=== PATIENT | male | born 1980 | race Native Hawaiian/Other Pacific Islander ===

== ENCOUNTER 2017-11-03 20:05 | Emergency (ER) | payer OTHER ==
[2017-11-03 20:54] VITALS: BP 115/64; PULSE 74; RESP 15; TEMP 98.2; O2SAT 99
[2017-11-03] MEDS ORDERED: NAPROXEN 500 MG TAB PO ONE (22:15)
[2017-11-03] MEDS ORDERED: CYCLOBENZAPRINE HCL 10 MG TAB PO ONE (22:15)
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
[2017-11-03] MEDS ORDERED: DICL75TA PO (22:33)
[2017-11-03] MEDS ORDERED: CYCL10TA PO (22:33)
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
[2017-11-03 23:38] VITALS: RESP 18
== END 2017-11-03 23:39 | disposition home or self-care (01) ==
LOC: NEPD 20:05
DX: S80.11XA Contusion of right lower leg, initial encounter (principal); M54.2 Cervicalgia; V43.52XA Car driver injured in collision with other type car in traffic accident, initial encounter
CPT/HCPCS: 72040; 72100; 73590; 99283